=== PATIENT | female | born 1995 | race Native Hawaiian/Other Pacific Islander ===

== ENCOUNTER 2019-05-28 12:14 | Outpatient (CLI) | payer OTHER | END 2019-05-28 21:45 | disposition home or self-care (01) | LOC: RAD 12:14 | DX: M62.830 Muscle spasm of back (principal); M54.17 Radiculopathy, lumbosacral region ==

== ENCOUNTER 2020-10-17 09:29 | Outpatient (CLI) | payer OTHER | END 2020-10-17 19:17 | disposition home or self-care (01) | LOC: RAD 09:29 | PROVIDERS: ATTEND Nurse Practitioner Family | DX: E79.0 Hyperuricemia without signs of inflammatory arthritis and tophaceous disease (principal); M06.4 Inflammatory polyarthropathy; M54.5 Low back pain; M79.7 Fibromyalgia; R76.0 Raised antibody titer ==